=== PATIENT | male | born 1995 | race Hispanic/Latino ===

== ENCOUNTER 2022-03-10 19:28 | Emergency (ER) | payer SELFPAY ==
--- NOTE | 2022-03-10 21:08 | RAD REPORT ---
EXAM DESCRIPTION: US - Scrotum Testicles - 03/10/2022 8:45 pm CLINICAL HISTORY: Testicular pain COMPARISON: None FINDINGS: Right testicle measures 4.5 x 2.7 x 3 centimeters. Echotexture is homogeneous. Normal bloo d flow Left testicle measures 4.3 x 2.1 x 2.9 centimeters. Echotexture is homogeneous. Normal blood flow The epididymides are normal in size and echotexture. Normal blood flow is seen. IMPRESSION: Unremarkable exam
[2022-03-10 22:16] LABS: Urine Blood Negative (Negative); Urine Glucose Negative (Negative); Urine Protein Negative (Negative)
--- NOTE | 2022-03-10 22:39 | EDPHYS ---
Physician Documentation [facility] Name: Timmy Jean-Baptiste Age: 27 yrs Sex: Male : 1995 Arrival Date: 03/10/2022 Time: 19:29 Bed 6 Private MD: ED Physician Raheem Chaudhry HPI: 03/10 23:30 This 27 yrs old Male presents to ER via Ambulatory with complaints of kb Testicular Pain. 23:30 The patient presents with scrotal pain, of the right side, without swelling, without kb erythema. Onset: The symptoms/episode began/occurred at 17:00. Modifying factors: The symptoms are alleviated by nothing, the symptoms are aggravated by nothing. Associated signs and symptoms: The patient has no apparent associated signs or symptoms. Severity of symptoms: At their worst the symptoms were moderate, in the emergency department the symptoms are unchanged. The patient has not experienced similar symptoms in the past. The patient has not recently seen a physician. Historical: - Allergies: 19:52 No Known Allergies; kb3 - Home Meds: 19:52 None [Active]; kb3 - PMHx: 19:52 None; kb3 - PSHx: 19:52 None; kb3 - Immunization history:: Adult Immunizations up to date, Client reports receiving the 2nd dose of the Covid vaccine, Last tetanus immunization: up to date. - Social history:: Smoking status: Patient denies any tobacco usage or history of. ROS: 23:29 Constitutional: Negative for fever, chills, and weight loss. kb 23:29 : Positive for testicular pain of the right testicle. 23:29 All other systems are negative. Exam: 23:29 Constitutional: This is a well developed, well nourished patient who is awake, alert, kb and in no acute distress. Head/Face: Normocephalic, atraumatic. ENT: Moist Mucous membranes Respiratory: Respirations even and unlabored. No increased work of breathing. Talking in full sentences Abdomen/GI: Soft, non-tender. No distention Male : Normal genitalia with no discharge or lesions. Skin: Warm, dry with normal turgor. Normal color. MS/ Extremity: Pulses equal, no cyanosis. Neurovascular intact. Full, normal range of motion. Neuro: Awake and alert, GCS 15, oriented to person, place, time, and situation. Moves all extremities. Normal gait. Psych: Awake, alert, with orientation to person, place and time. Behavior, mood, and affect are within normal limits. Vital Signs: 19:50 BP 125 / 80; Pulse 83; Resp 16; Temp 98.6; Pulse Ox 100% ; Weight 74.84 kg; Height 6 kb3 ft. 1 in. (185.42 cm); Pain 6/10; 21:27 BP 128 / 94; Pulse 75; Resp 16; Pulse Ox 99% on R/A; Pain 6/10; ja4 22:05 BP 113 / 77; Pulse 61; Resp 16; Pulse Ox 99% ; vc1 19:50 Body Mass Index 21.77 (74.84 kg, 185.42 cm) kb3 MDM: 20:01 Patient medically screened. kb 23:30 Data reviewed: vital signs, nurses notes. Data interpreted: Pulse oximetry: on room air kb is 99 %. Interpretation: normal. Counseling: I had a detailed discussion with the patient and/or guardian regarding: the historical points, exam findings, and any diagnostic results supporting the discharge/admit diagnosis, lab results, radiology results, the need for outpatient follow up, a urologist, to return to the emergency department if symptoms worsen or persist or if there are any questions or concerns that arise at home. 03/10 22:17 Order name: Urine Dipstick-Ancillary; Complete Time: 22:19 EDAR 03/10 19:59 Order name: US Scrotum Testicles; Complete Time: 21:09 kb 03/10 21:09 Order name: Urine Dipstick-Ancillary (obtain specimen); Complete Time: 22:20 kb Administered Medications: 22:50 Drug: Ketorolac 30 mg Route: IVP; Site: right antecubital; ja4 Disposition Summary: 03/10/22 22:38 Discharge Ordered Location: Home kb Condition: Stable kb Diagnosis - Right testicular pain kb Followup: kb - With: Emergency Department - When: As needed - Reason: Worsening of condition Followup: kb - With: Private Physician - When: 2 - 3 days - Reason: Recheck today's complaints, Continuance of care, Re-evaluation by your physician Discharge Instructions: - Discharge Summary Sheet kb Forms: - Medication Reconciliation Form kb - Thank You Letter kb - Antibiotic Education kb - Prescription Opioid Use kb Signatures: Dispatcher [employer] Giselle Vela, STEEL CRANE OPERATOR-C STEEL CRANE OPERATOR-Ckb Jana Byrne, RN RN kb3 Mario Montejo, RN RN ja4
--- NOTE | 2022-03-10 22:39 | ER ---
Nurse's Notes [facility] Name: Timmy Jean-Baptiste Age: 27 yrs Sex: Male : 1995 Arrival Date: 03/10/2022 Time: 19:29 Bed 6 Private MD: Diagnosis: Right testicular pain Presentation: 03/10 19:50 Chief complaint: Patient states: Right testicle pain since 1730 tonight. Denies trauma. kb3 Coronavirus screen: Vaccine status: Patient reports receiving the 2nd dose of the covid vaccine. Client denies travel out of the [place] in the last 14 days. Ebola Screen: Patient negative for fever greater than or equal to 101.5 degrees Fahrenheit, and additional compatible Ebola Virus Disease symptoms Patient denies exposure to infectious person. Patient denies travel to an Ebola-affected area in the 21 days before illness onset. No symptoms or risks identified at this time. Initial Sepsis Screen: Does the patient meet any 2 criteria? No. Patient's initial sepsis screen is negative. Does the patient have a suspected source of infection? No. Patient's initial sepsis screen is negative. Risk Assessment: Do you want to hurt yourself or someone else? Patient reports no desire to harm self or others. Onset of symptoms was March 10, 2022 at 17:30. 19:50 Method Of Arrival: Ambulatory 3 19:50 Acuity: SAMMIE 2 kb3 Triage Assessment: 19:52 General: Appears in no apparent distress. distressed, Behavior is calm, cooperative. kb3 Pain: Complains of pain in groin Pain radiates to right inguinal area. Historical: - Allergies: 19:52 No Known Allergies; kb3 - Home Meds: 19:52 None [Active]; kb3 - PMHx: 19:52 None; kb3 - PSHx: 19:52 None; kb3 - Immunization history:: Adult Immunizations up to date, Client reports receiving the 2nd dose of the Covid vaccine, Last tetanus immunization: up to date. - Social history:: Smoking status: Patient denies any tobacco usage or history of. Screenin:25 Abuse screen: Denies threats or abuse. Nutritional screening: No deficits noted. ja4 Tuberculosis screening: No symptoms or risk factors identified. Fall Risk IV access (20 points). Assessment: 21:25 General: Appears in no apparent distress. uncomfortable, Behavior is calm, cooperative, ja4 appropriate for age. Pain: Complains of pain in pelvis Pain currently is 6 out of 10 on a pain scale. Alleviated by medications, rest, Aggravated by increased activity, repositioning. 22:06 Reassessment: No changes from previously documented assessment. vc1 Vital Signs: 19:50 BP 125 / 80; Pulse 83; Resp 16; Temp 98.6; Pulse Ox 100% ; Weight 74.84 kg; Height 6 kb3 ft. 1 in. (185.42 cm); Pain 6/10; 21:27 BP 128 / 94; Pulse 75; Resp 16; Pulse Ox 99% on R/A; Pain 6/10; ja4 22:05 BP 113 / 77; Pulse 61; Resp 16; Pulse Ox 99% ; vc1 19:50 Body Mass Index 21.77 (74.84 kg, 185.42 cm) kb3 ED Course: 19:29 Patient arrived in ED. ja2 19:52 Triage completed. kb3 19:52 Arm band placed on right wrist. kb3 19:59 Giselle Madrid FNP-C [facility]. kb 19:59 Raheem Chaudhry MD is Attending Physician. kb 20:21 Mario Montejo, MIGUE is Primary Nurse. ja4 20:47 US Scrotum Testicles In Process Unspecified. EDMS 21:25 Patient has correct armband on for positive identification. Bed in low position. Call ja4 light in reach. Side rails up X 1. 21:25 No provider procedures requiring assistance completed. ja4 21:25 IV is intact, Changed dressing on Flushed. ja4 22:50 IV discontinued, intact, bleeding controlled, No redness/swelling at site. Pressure ja4 dressing applied. Administered Medications: 22:50 Drug: Ketorolac 30 mg Route: IVP; Site: right antecubital; ja4 Medication: 21:25 VIS not applicable for this client. ja4 Outcome: 22:38 Discharge ordered by . kb 22:50 Discharged to home ambulatory. ja4 22:50 Condition: good 22:50 Discharge instructions given to patient, Instructed on discharge instructions, follow up and referral plans. medication usage, Demonstrated understanding of instructions. 22:51 Patient left the ED. ja4 Signatures: Dispatcher [employer] EDMD Giselle Madrid FNP-C FNP-CkYumiko Segura Vanessa, RN RN vc1 Jana Byrne, RN RN kb3 Mario Montejo, RN RN ja4
[2022-03-10] MEDS ORDERED: KETOROLAC 30 MG/ML INJ ONE (22:51)
[2022-03-11 00:28] VITALS: TEMP 98.6
[2022-03-11 00:30] VITALS: O2SAT 99
[2022-03-11 00:32] VITALS: BP 113/77
== END 2022-03-10 22:51 | disposition home or self-care (01) ==
LOC: ER 19:28
DX: N50.811 Right testicular pain (principal)
CPT/HCPCS: 76870; 81003; 96374; 99283

== ENCOUNTER 2023-03-09 03:52 | Emergency (ER) | payer OTHER, SELFPAY ==
[2023-03-09 05:38] LABS: Specific Gravity 1.028 (1.005-1.030); Urine Bacteria None Seen /HPF (<20); Urine Bilirubin NEGATIVE (Negative); Urine Blood Negative (Negative); Urine Clarity Clear (Clear); Urine Color Light-Yellow (Yellow); Urine Glucose NEGATIVE (Negative); Urine Mucus Slight /HPF (None Seen); Urine Protein NEGATIVE (Negative); Urine RBC <5 /HPF (None Seen); Urine Urobilinogen Normal (Normal); Urine pH 6.5 (5.0-7.0)
--- NOTE | 2023-03-09 05:54 | EDPHYS ---
Physician Documentation [facility] Name: Timmy Jean-Baptiste Age: 28 yrs Sex: Male : 1995 Arrival Date: 03/09/2023 Time: 03:52 Bed 19 Private MD: ED Physician Bam Shanks HPI: 03/09 07:01 This 28 yrs old Male presents to ER via Ambulatory with complaints of Penile rt Problem. 07:01 Patient presents to the ED with testicular pain for the past 2 hours. Patient states rt that he woke up with an erection, noticed an aching pain to his bilateral testicles. He also reported a full sensation in his rectum. The symptoms have since resolved. States that he has had a difficulty urinating but is able to get a small amount. Denies other acute complaints this time, symptoms are mild severity, no other aggravating or alleviating factors. Historical: - Allergies: 04:30 No Known Allergies; ha1 - PMHx: 04:30 None; ha1 - Immunization history:: Adult Immunizations up to date. - Social history:: Smoking status: Patient denies any tobacco usage or history of. - Family history:: not pertinent. ROS: 07:01 Constitutional: Negative for fever, chills, and weight loss, Cardiovascular: Negative rt for chest pain, palpitations, and edema, Respiratory: Negative for shortness of breath, cough, wheezing, and pleuritic chest pain, Abdomen/GI: Negative for abdominal pain, nausea, vomiting, diarrhea, and constipation, Skin: Negative for injury, rash, and discoloration, Neuro: Negative for headache, weakness, numbness, tingling, and seizure, Psych: Negative for depression, anxiety, suicide ideation, homicidal ideation, and hallucinations. 07:01 : Positive for testicular pain Negative for penile discharge. Exam: 07:01 Constitutional: This is a well developed, well nourished patient who is awake, alert, rt and in no acute distress. Head/Face: Normocephalic, atraumatic. Chest/axilla: Normal chest wall appearance and motion. Nontender with no deformity. No lesions are appreciated. Cardiovascular: Regular rate and rhythm with a normal S1 and S2. No gallops, murmurs, or rubs. Normal PMI, no JVD. No pulse deficits. Respiratory: Lungs have equal breath sounds bilaterally, clear to auscultation and percussion. No rales, rhonchi or wheezes noted. No increased work of breathing, no retractions or nasal flaring. Abdomen/GI: Soft, non-tender, with normal bowel sounds. No distension or tympany. No guarding or rebound. No evidence of tenderness throughout. Skin: Warm, dry with normal turgor. Normal color with no rashes, no lesions, and no evidence of cellulitis. MS/ Extremity: Pulses equal, no cyanosis. Neurovascular intact. Full, normal range of motion. Neuro: Awake and alert, GCS 15, oriented to person, place, time, and situation. Cranial nerves II-XII grossly intact. Motor strength 5/5 in all extremities. Sensory grossly intact. Cerebellar exam normal. Normal gait. Psych: Awake, alert, with orientation to person, place and time. Behavior, mood, and affect are within normal limits. 07:01 : Normal external genitalia, no testicular swelling or tenderness, no penile discharge. Prostate is normal in size, is not boggy, nontender. Vital Signs: 04:12 BP 135 / 90; Pulse 68; Resp 16 S; Temp 98.1; Pulse Ox 98% on R/A; Weight 72.57 kg; ha1 Height 6 ft. 1 in. ; 05:04 BP 130 / 85; Pulse 70; Resp 15 S; Pulse Ox 99% on R/A; ha1 06:00 BP 129 / 82; Pulse 68; Resp 16 S; Pulse Ox 100% on R/A; ha1 04:12 Body Mass Index 21.11 (72.57 kg, 185.42 cm) [facility] MDM: 04:16 Patient medically screened. rt 07:01 Differential diagnosis: Prostatitis, urethritis, nonspecific testicular pain, rt epididymitis, orchitis, torsion. Data reviewed: vital signs, nurses notes, lab test result(s), radiologic studies. Test considered but Not performed: CT: Benign abdominal examination, CT scan not indicated. Counseling: I had a detailed discussion with the patient and/or guardian regarding the historical points, exam findings, and any diagnostic results supporting the discharge/admit diagnosis, lab results, radiology results, the need for outpatient follow up, to return to the emergency department if symptoms worsen or persist or if there are any questions or concerns that arise at home. 03/09 04:26 Order name: UAM; Complete Time: 05:43 rt 03/09 04:26 Order name: US Scrotum Testicles rt 03/09 04:26 Order name: Bladder Scanner; Complete Time: 04:53 rt Administered Medications: No medications were administered Disposition Summary: 03/09/23 05:52 Discharge Ordered Location: Home rt Problem: new rt Symptoms: have improved rt Condition: Stable rt Diagnosis - Testicular pain rt Followup: rt - With: Paul Leiva MD - When: 5 - 6 days - Reason: Discharge Instructions: - Discharge Summary Sheet rt - Testicular Torsion, Adult rt Forms: - Medication Reconciliation Form rt - Thank You Letter rt - Antibiotic Education rt - Prescription Opioid Use rt - Patient Portal Instructions rt - Leadership Thank You Letter rt Signatures: Dispatcher [employer] Debo Ortiz, RN RN ha1 Bam Shanks MD MD rt
--- NOTE | 2023-03-09 05:54 | ER ---
Nurse's Notes [facility] Name: Timmy Jean-Baptiste Age: 28 yrs Sex: Male : 1995 Arrival Date: 03/09/2023 Time: 03:52 Bed 19 Private MD: Diagnosis: Testicular pain Presentation: 03/09 04:12 Chief complaint: Patient states: around 2:26 AM I felt a horrible pain on my testicles ha1 and there is a family history of testicular torsion and I want to make sure it is not happening to me. The pain had got better on its own. 04:12 Coronavirus screen: Vaccine status: Patient reports receiving the 2nd dose of the covid ha1 vaccine. Moderna. Ebola Screen: No symptoms or risks identified at this time. Initial Sepsis Screen: Does the patient meet any 2 criteria? No. Patient's initial sepsis screen is negative. Does the patient have a suspected source of infection? No. Patient's initial sepsis screen is negative. Risk Assessment: Do you want to hurt yourself or someone else? Patient reports no desire to harm self or others. Onset of symptoms was March 09, 2023. 04:12 Method Of Arrival: Ambulatory ha1 04:12 Acuity: SAMMIE 3 ha1 Triage Assessment: 04:12 General: Appears comfortable, Behavior is calm, cooperative. Pain: Complains of pain in ha1 testicles Pain does not radiate. Pain currently is 4 out of 10 on a pain scale. Quality of pain is described as pressure. Neuro: Level of Consciousness is awake, alert, obeys commands, Oriented to person, place, time, situation. Cardiovascular: Patient's skin is warm and dry. Respiratory: Airway is patent Respiratory effort is even, labored, Respiratory pattern is regular, symmetrical. GI: No signs and/or symptoms were reported involving the gastrointestinal system. Abdomen is flat, non-distended. : Reports pain on the testicles. Musculoskeletal: Circulation, motion, and sensation intact. Range of motion: intact in all extremities. Historical: - Allergies: 04:30 No Known Allergies; ha1 - PMHx: 04:30 None; ha1 - Immunization history:: Adult Immunizations up to date. - Social history:: Smoking status: Patient denies any tobacco usage or history of. - Family history:: not pertinent. Screenin:12 [facility] ED Fall Risk Assessment (Adult) History of falling in the last 3 months, ha1 including since admission No falls in past 3 months (0 pts) Confusion or Disorientation No (0 pts) Intoxicated or Sedated No (0 pts) Score/Fall Risk Level 0 - 2 = Low Risk Oriented to surroundings, Maintained a safe environment, Educated pt \T\ family on fall prevention, incl call for assistance when getting out of bed. Abuse screen: Denies threats or abuse. Denies injuries from another. Nutritional screening: No deficits noted. Tuberculosis screening: No symptoms or risk factors identified. Assessment: 04:12 Reassessment: see triage assessment. ha1 04:54 Reassessment: 171 mls scanned with bladder scanner. vc1 05:05 Reassessment: Patient and/or family updated on plan of care and expected duration. Pain ha1 level reassessed. Patient is alert, oriented x 3, equal unlabored respirations, skin warm/dry/pink. pain 2/10 Patient states feeling better. Patient states symptoms have improved. 06:07 Reassessment: Patient and/or family updated on plan of care and expected duration. Pain ha1 level reassessed. Patient is alert, oriented x 3, equal unlabored respirations, skin warm/dry/pink. Patient denies pain at this time. Patient states feeling better. Patient states symptoms have improved. Vital Signs: 04:12 BP 135 / 90; Pulse 68; Resp 16 S; Temp 98.1; Pulse Ox 98% on R/A; Weight 72.57 kg; ha1 Height 6 ft. 1 in. ; 05:04 BP 130 / 85; Pulse 70; Resp 15 S; Pulse Ox 99% on R/A; ha1 06:00 BP 129 / 82; Pulse 68; Resp 16 S; Pulse Ox 100% on R/A; ha1 04:12 Body Mass Index 21.11 (72.57 kg, 185.42 cm) ha1 ED Course: 03:57 Patient arrived in ED. es 03:58 Bam Shanks MD is Attending Physician. rt 04:12 Arm band placed on right wrist. ha1 04:12 Patient has correct armband on for positive identification. Bed in low position. Call 1 light in reach. Side rails up X 1. 04:23 Millan, Debo, RN is Primary Nurse. ha1 04:29 Triage completed. ha1 05:00 US Scrotum Testicles In Process Unspecified. EDMS 05:52 Paul Leiva MD is Referral Physician. rt 06:07 No provider procedures requiring assistance completed. Patient did not have IV access ha1 during this emergency room visit. 06:08 Provided Education on: follow up. ha1 Administered Medications: No medications were administered Medication: 04:57 VIS not applicable for this client. ha1 Outcome: 05:52 Discharge ordered by MD. rt 06:07 Discharged to home ambulatory. ha1 06:07 Condition: stable 06:07 Discharge instructions given to patient, Instructed on discharge instructions, follow up and referral plans. Demonstrated understanding of instructions, follow-up care. 06:08 Patient left the ED. ha1 Signatures: Dispatcher [employer] Brandi Cee Vanessa RN RN vc1 Debo Millan RN RN ha1 Bam Shakns MD MD rt Corrections: (The following items were deleted from the chart) 04:56 04:54 General: Appears ha1 ha1
[2023-03-09 06:14] VITALS: TEMP 98.1
[2023-03-09 06:16] VITALS: BP 129/82; O2SAT 100
--- NOTE | 2023-03-09 13:08 | RAD REPORT ---
EXAM DESCRIPTION: US - Scrotum Testicles - 03/09/2023 4:58 am CLINICAL HISTORY: PAIN TECHNIQUE: Real-time and patel scale sonographic imaging of the scrotum and its contents was performe d. COMPARISON: None available for comparison FINDINGS: Right testicle: The right testicle measures 4.6 x 2.4 x 3.2 cm. Normal echotexture. No foc al mass. Normal flow. Left testicle: The left testicle measures 4.4 x 2.8 x 3.4 cm. Normal echotexture. No focal mass. Norm al flow. Right epididymis: Unremarkable Left epididymis: Unremarkable Hydroceles: Trace right hydrocele. Varicoceles: None IMPRESSION: Normal testicular vascular flow bilaterally without sonographic evidence of torsion. Tra ce right hydrocele. Electronically signed by: Galo Lea MD 03/09/2023 5:25 AM CDT Due to temporary technical issues with the PACS/Fluency reporting system, reports are being signed by the in house radiologist without review as a courtesy to ensure prompt reporting. The interpreting r adiologist is fully responsible for the content of the report.
== END 2023-03-09 06:08 | disposition home or self-care (01) ==
LOC: ER 03:52
DX: N50.812 Left testicular pain (principal); N50.811 Right testicular pain
CPT/HCPCS: 76870; 81001; 99283